=== PATIENT | female | born 1975 | race Caucasian/White ===

== ENCOUNTER 2021-05-15 09:08 | Emergency (ER) | payer BC ==
[~2021-05-15] VITALS: Ht 172.7 cm; Wt 68.0 kg
[2021-05-15] MEDS ORDERED: ACETAMINOPHEN ES 500 MG TABLET PO ONE (09:30)
[2021-05-15] MEDS ORDERED: ACETAMINOPHEN ES 500 MG TABLET ONE (09:39)
--- NOTE | 2021-05-15 10:02 | NUR ---
PT IS IN ROOM #2A. DR CHANG EVALUATED THE PT.
--- NOTE | 2021-05-15 10:40 | NUR ---
PT WAS D/C'd TO HOME. D/C INSTRUCTIONS GIVEN TO THE PT BY DR CHNAG.
[2021-05-15 10:41] VITALS: BP 129/78
== END 2021-05-15 10:42 | disposition home or self-care (01) ==
LOC: ER 09:13
DX: S99.921A Unspecified injury of right foot, initial encounter (principal); S59.911A Unspecified injury of right forearm, initial encounter; W20.8XXA Other cause of strike by thrown, projected or falling object, initial encounter; Y92.89 Other specified places as the place of occurrence of the external cause
CPT/HCPCS: 73630; A4663; A9150; J7030

== ENCOUNTER 2021-09-19 06:55 | Emergency (ER) | payer BC ==
[~2021-09-19] VITALS: Ht 172.7 cm; Wt 65.8 kg
--- NOTE | 2021-09-19 07:03 | NUR ---
Dr. Patel at bedside for MSE.
--- NOTE | 2021-09-19 07:07 | NUR ---
Pt verbally discharged by Dr. Patel. Patient out of ER with steady gait, no acute signs of distress, VSS, all belongings taken.
[2021-09-19 07:08] VITALS: BP 117/73
== END 2021-09-19 07:08 | disposition home or self-care (01) ==
LOC: ER 06:59
DX: T23.202A Burn of second degree of left hand, unspecified site, initial encounter (principal); X19.XXXA Contact with other heat and hot substances, initial encounter; Y92.89 Other specified places as the place of occurrence of the external cause
CPT/HCPCS: A4663